=== PATIENT | female | born 1960 | race Caucasian/White ===

== ENCOUNTER 2020-10-29 12:22 | Outpatient (RCR) | payer MEDICARE, OTHER, SELFPAY ==
[2020-10-29] MEDS: COVID-19 VACC, MRNA(PFIZER)/PF 30 MCG/0.3 ML SYRINGE IM (11:07)
[2020-11-19] MEDS: COVID-19 VACC, MRNA(PFIZER)/PF 30 MCG/0.3 ML SYRINGE IM (11:04)
== END 2020-10-29 23:59 ==
LOC: IMMUN 12:22
PROVIDERS: PCP Family Medicine; Visit Provider Family Medicine
DX: Z23 Encounter for immunization (principal)
CPT/HCPCS: 0001A; 0002A; 91300